=== PATIENT | male | born 1965 | race Caucasian/White ===

== ENCOUNTER → 2024-02-23 12:28 | Outpatient (REF) | payer MEDICARE, SELFPAY | LOC: RAD 12:28 | PROVIDERS: ATTENDING PHYSICIAN Family Medicine | DX: R06.09 Other forms of dyspnea (principal); Z87.891 Personal history of nicotine dependence; Z87.09 Personal history of other diseases of the respiratory system | CPT/HCPCS: 71046 ==

== ENCOUNTER → 2024-02-24 07:08 | Outpatient (REF) | payer MEDICARE, SELFPAY ==
[2024-02-24 07:52] LABS: % Basophils 0.7 % (0-2); % Eosinophils 1.1 % (0-6); % Immature Granulocytes 0.4 % (0-0.5); % Lymphocytes 35.1 % (20.5-51.1); % Monocytes 11.2 % (1.7-9.3); % Neutrophils 51.5 % (42.2-75.2); Absolute Eosinophils 0.1 10^3/uL (0-0.7); Absolute Lymphocytes 1.6 10^3/uL (1.2-3.4); Absolute Monocytes 0.5 10^3/uL (0.1-0.6); Absolute Neutrophils 2.4 10^3/uL (1.4-6.5); Hematocrit 46.3 % (39.0-52.0); Hemoglobin 16.3 g/dL (13.0-18.0); Mean Corp Hgb Conc. 35.2 g/dL (33.0-37.0); Mean Corpuscular Hgb 33.5 pg (27.0-31.0); Mean Corpuscular Volume 95.1 fL (80.0-94.0); Mean Platelet Volume 9.3 fL (7.4-10.4); Nucleated Red Blood Cells % 0 % (-); Platelet Count 230 10^3/uL (130-400); Red Blood Cell Count 4.87 10^6/uL (4.70-6.10); Red Cell Dist. Width 12.9 % (11.5-14.5); White Blood Cell Count 4.6 10^3/uL (4.8-10.8)
[2024-02-24 09:41] LABS: Erythrocyte Sed Rate 10 mm/hour (0-20)
[2024-02-24 09:49] LABS: ALT (SGPT) 73 U/L (0-50); AST (SGOT) 82 U/L (17-59); Albumin 4.3 g/dl (3.5-5.0); Alkaline Phosphatase 45 U/L (38-126); Blood Urea Nitrogen 15 mg/dl (9-20); Calcium 10.1 mg/dl (8.4-10.2); Carbon Dioxide 32 mmol/L (22-30); Chloride 104 mmol/L (98-107); Glucose 115 mg/dl (70-99); HDL Cholesterol 98 mg/dl; LDL Cholesterol, Calculated 47 mg/dl; Sodium 141 mmol/L (135-145); Total Bilirubin 0.6 mg/dl (0.2-1.3); Total Cholesterol 161 mg/dl (50-199); Triglyceride 81 mg/dl (10-149); Uric Acid 4.2 mg/dl (3.5-8.5); Very Low Density Lipoprotein 16 mg/dl (0-30); eGFR > 60.00
[2024-02-24 09:56] LABS: C-Reactive Protein < 5.00 mg/L (0.0-10.00)
[2024-02-24 10:12] LABS: Vitamin D, 25-OH*** 31.5 ng/mL (30-80)
== END ==
LOC: REG 07:08
PROVIDERS: ATTENDING PHYSICIAN Family Medicine
DX: R10.31 Right lower quadrant pain (principal); Z87.19 Personal history of other diseases of the digestive system; E78.2 Mixed hyperlipidemia; E55.9 Vitamin D deficiency, unspecified
CPT/HCPCS: 36415; 80053; 80061; 82306; 84550; 85025; 85652; 86140

== ENCOUNTER → 2024-03-03 11:28 | Outpatient (REF) | payer MEDICARE, SELFPAY | LOC: RAD 11:28 | PROVIDERS: ATTENDING PHYSICIAN Family Medicine | DX: R10.31 Right lower quadrant pain (principal); Z87.19 Personal history of other diseases of the digestive system | CPT/HCPCS: 74178; Q9967 ==

== ENCOUNTER 2024-03-14 18:09 | Inpatient (IN) | payer MEDICARE, SELFPAY ==
[2024-03-14 12:57] VITALS: BP 127/84
[2024-03-14 13:13] LABS: % Basophils 0.5 % (0-2); % Eosinophils 0.3 % (0-6); % Monocytes 8.2 % (1.7-9.3); Absolute Immature Granulocytes 0.1 10^3/uL (0-0.05); Absolute Lymphocytes 1.7 10^3/uL (1.2-3.4); Absolute Monocytes 0.7 10^3/uL (0.1-0.6); Absolute Neutrophils 5.5 10^3/uL (1.4-6.5); Hematocrit 46.2 % (39.0-52.0); Hemoglobin 16.6 g/dL (13.0-18.0); Mean Corp Hgb Conc. 35.9 g/dL (33.0-37.0); Mean Corpuscular Hgb 33.4 pg (27.0-31.0); Nucleated Red Blood Cells % 0 % (-); Platelet Count 374 10^3/uL (130-400); Red Blood Cell Count 4.97 10^6/uL (4.70-6.10); Red Cell Dist. Width 13.2 % (11.5-14.5)
[2024-03-14 13:28] LABS: ALT (SGPT) 51 U/L (0-50); AST (SGOT) 57 U/L (17-59); Albumin 4.3 g/dl (3.5-5.0); Alkaline Phosphatase 45 U/L (38-126); Blood Urea Nitrogen 25 mg/dl (9-20); Calcium 9.7 mg/dl (8.4-10.2); Carbon Dioxide 28 mmol/L (22-30); Chloride 104 mmol/L (98-107); Glucose 131 mg/dl (70-99); Potassium 3.9 mmol/L (3.5-5.1); Sodium 140 mmol/L (135-145); Total Bilirubin 0.8 mg/dl (0.2-1.3); Total Protein 7.2 g/dl (6.3-8.2); eGFR > 60.00
[2024-03-14 14:34] VITALS: BP 118/97; BMI 25.8
[2024-03-14 15:22] VITALS: BP 121/61
--- NOTE | 2024-03-14 15:22 | ED.GENMED ---
History of Present Illness
General
Chief Complaint: Abdominal Symptoms
Source: patient and family
Exam Limitations: other (Patient with expressive aphasia from 2 strokes)
Time Seen by Provider: 03/14/24 14:22
Nursing documentation reviewed up to this point in time: agreed with
Travel History
Have you had any contact with someone who has COVID-19?: No
Do you have any symptoms of coronavirus? Fever > 100 degrees, chills, cough, shortness of breath, sore throat, loss of taste or smell, muscle aches, or headache?: No
History of Present Illness
History of Present Illness:
Patient is a 59-year-old male with history of alcohol abuse A-fib hypertension hyperlipidemia expressive aphasia strokes sent to the ER for evaluation and for admission. Sister who is at bedside who is giving history for patient since he has
expressive aphasia reports patient has had abdominal pain and had an outpatient CAT scan showed an abnormality reports thickening of the sigmoid colon. He needs a colonoscopy however because of his alcohol use patient was sent to the ER for
admission to the for observation hydration and colonoscopy. Patient drinks 15-16 beers per day.
Patient with no nausea vomiting fevers. Sister reports that patient is on Eliquis and sounds counter stitcher, Dr. Aron Hogan this morning. He is in A-fib currently and had an echo done today. Sister reports the patient was supposed to be
increasing his metoprolol to 50 mg for the past 2 weeks however instead of creasing his metoprolol he has been incidentally increasing his statin instead.
Regarding patient's alcohol use patient has never had a withdrawal seizure. He did not drink today he last drank yesterday
Past History
Past History
ED Past Medical History: Arrthythmia, COPD, CVA, HTN, Hypercholesterolemia and Other
ED Past Surgical History: Cardiac
Social History
Tobacco: Former smoker
Alcohol: None
Drug: None
Living: with family
Review of Systems
Review of Systems
Allergies reviewed?: Yes
All Other Systems: ROS reviewed and negative except as documented in HPI and ROS
Constitutional: Reports no symptoms
Respiratory: Reports no symptoms
Cardiac: Reports no symptoms
ABD/GI: Reports other (Intermittent abdominal pain right-sided)
: Reports no symptoms
Musculoskeletal: Reports no symptoms
Skin: Reports no symptoms
Neurological: Reports no symptoms
Psychiatric: Reports no symptoms
Phy Exam
General Physical Exam
General Presentation: no apparent distress
General age: appears stated age
General Skin: warm and dry
General Mental: alert
General Hydration: appears well hydrated
Cardiovascular Exam
Cardiovascular Exam: irregularly irregular
Neurological Exam
Neurological Exam: alert and oriented x3
Musculoskeletal Exam
Musculoskeletal Exam: full ROM
Skin Exam
Skin Exam: normal color and warm/dry
Psychiatric Exam
Psychiatric Exam: normal mood/affect
Course
Orders/Labs/Results
Orders:
Orders
03/14/24 13:03
Alcohol Urgent
Complete Blood Count/With Diff Urgent
Comprehensive Metabolic Panel Urgent
Magnesium Urgent
Phosphorus Urgent
Comment: ADD ON
03/14/24 Dinner
Cholesterol Lowering
At Your Request: Full Participation
Does patient need a safe tray?: No
03/14/24 15:36
Electrocardiogram (*1) Stat
Reason for Study: Other
Other Reason for Exam: chest pain
EKG- Treatment ONCE
03/14/24 17:27
Admit/Transfer Patient As Directed
Co-Sign Provider:
Level of Care: Inpatient admission
Assign to:: Telemetry
Physician / Group: [place]
Diagnosis: Sigmoid mass
Reason for Telemetry: Arrhythmia
Date to Stop Telemetry: 03/17/24
Time to Stop Telemetry: 11:00
Reason for Hospitalization: See progress note
Expected length of stay greater than two midnights?: Yes
ELOS- Estimated Length of Stay in days: 3
I certify the patient meets the requirements for IP care: Yes
03/14/24 17:34
Code Status As Directed
Resuscitation Status: Full Code
03/14/24 17:51
Phenobarbital Sodium [Phenobarbital] 260 mg 0.9% Sodium Chloride 100 ml [Nss] 100 ml IV NOW
03/14/24 19:46
0.9% Sodium Chloride [Nss (Preservative Free)] See Protocol IV PRN PRN
Acetaminophen [Tylenol] 650 mg PO Q4HPRN PRN
FOLic ACID [Folvite] 1 mg 0.9% Sodium Chloride 50 ml [Nss] 50 ml IV DAILYPRN
Lorazepam [Ativan] 1 mg IV Q1HPRN PRN
Lorazepam [Ativan] 1 mg PO Q2HPRN PRN
Lorazepam [Ativan] 2 mg IV Q1HPRN PRN
03/14/24 19:46
Add On- LAB Routine
Tests Added?: phosphorus,magnesium
Case Management Consult Once
Case Management Consult: Other
Comment: Substance abuse counseling
DIETARY CONSULT Routine
Reason for Consult: Nutrition support, possible refeeding guidelines
GASTROINTESTINAL CONSULT Routine
Consulting Provider: Danae Aguilera
Was physician already notified: Yes
Urine Drug Abuse Screen Routine
Date Specimen was Collected: 03/15/24
Time Specimen was Collected: 03:37
Activity As Directed
Activity Level: As Tolerated
I&O [Intake/ Output] As Directed
Frequency: q12h
MSAS SCORE As Directed
MSAS Score 0-4: Repeat MSAS every 2 hours until 0-4 for three consecutive assessments, then every 4 hours x 48
hours.
MSAS Score 5-7: For MILD withdrawl symptoms. Repeat MSAS and RASS every 2 hours
MSAS Score 8-11: For MODERATE withdrawal symptoms. Repeat MSAS and RASS every 1 hour. Consider ICU or IMU
level of care.
MSAS Score > 11: For SEVERE withdrawal symptoms. Repeat MSAS and RASS every 1 hour. Notify provider, consider
ICU level of care.
MSAS Additional Instructions: If no improvement or no decrease in score from severe to moderate within 12
hours, consult psychiatry
MSAS Notify Provider: Notify provider if patient requires more than 10 mg of Lorazepam in eight hour period.
Sequential Compression Device [Pneumatic Compression Sleeves] As Directed
Type: Knee high
Pt Eval And Treat Routine
Activity Level: As Tolerated
DX Deep Vein Thrombosis Video Routine
03/14/24 20:00
Thiamine Injection 200 mg IV Q12
03/14/24 22:00
Atorvastatin [Lipitor] 40 mg PO HS
Gabapentin [Neurontin] 900 mg PO HS
Trazodone [Desyrel] 50 mg PO HS
03/15/24 08:00
Allopurinol [Zyloprim] 300 mg PO DAILY
FOLic ACID [Folvite] 1 mg PO DAILY
Fenofibrate 145 [Tricor] 145 mg PO DAILY
Hydrochlorothiazide [Oretic] 25 mg PO DAILY
Lisinopril [Zestril] 40 mg PO DAILY
Metoprolol Xl [Toprol Xl] 50 mg PO DAILY
Phenobarbital Sodium [Phenobarbital] 97.5 mg IV TID
03/17/24 08:00
Phenobarbital [Luminal] 64.8 mg PO TID
03/17/24 11:00
DC Protocol for Telemetry ONCE
03/17/24 20:00
Thiamine HCl [Vitamin B1] 100 mg PO BID
03/19/24 08:00
Phenobarbital [Luminal] 32.4 mg PO TID
Abnormal Lab Results
03/14/24
13:03
MCH 33.4 H pg
(27.0-31.0)
Abs Immat Gran (auto) 0.1 H 10^3/uL
(0-0.05)
Absolute Monos (auto) 0.7 H 10^3/uL
(0.1-0.6)
Immature Gran % 1.0 H %
(0-0.5)
BUN 25 H mg/dl
(9-20)
Glucose 131 H mg/dl
(70-99)
ALT 51 H U/L
(0-50)
03/14/24 13:03
03/14/24 13:03
Vital Signs
Initial and Last Documented VS:
Initial Vital Signs
Temp Pulse Resp BP Pulse Ox
98.8 F 78 16 127/84 98
03/14/24 12:57 03/14/24 12:57 03/14/24 12:57 03/14/24 12:57 03/14/24 12:57
Last Documented Vital Signs
Temp Pulse Resp BP Pulse Ox
98.1 F 88 18 97/60 98
03/16/24 15:31 03/16/24 15:31 03/16/24 15:31 03/16/24 15:31 03/16/24 15:31
MDM/Problems Addressed
MDM/Problems Addressed:
59-year-old male sent by physician GI physician for evaluation. Patient is documented has been having abdominal pain and was found to have an abnormal CAT scan with abnormality in the sigmoid colon. He was recommended to have a colonoscopy however
he is a heavy alcohol drinker and therefore was unable to do the colonoscopy as an outpatient. He has never had any withdrawal seizures but he drinks approximate 15�16 beers per day. He did not drink today. He is no acute distress mildly tender
in the right lower quadrant right side of the abdomen no nausea vomiting. He does have a history of A-fib and is in A-fib presently he is on Eliquis. His counter stitcher whom he just saw this morning increases beta-mihaela. He is in no acute
distress patient manage the hospitalist
*Pulse Oximetry
Patient hypoxic: no
*EKG
Interpreted by ED Provider?: Yes
Heart Rate: 108
Rate: tachycardiac
Rhythm: a-fib
Ischemia: non-specific ST changes
*Critical Care Note
Total Time (30-74mins, 75-104mins- exclusive of procedures): Not Applicable
Data Reviewed
Review of Other/Old Records Reveals: Other (CAT scan reviewed from March 09 which shows under distention versus mild narrowing and wall thickening involving 2 segments of the sigmoid colon)
ED Attending Note
-
Portions of this chart may have been created with voice recognition software.� Occasional wrong word or��sound alike� substitutions may have occurred due to the inherent limitations of voice recognition software.
Discharge Plan
Departure
Patient Disposition: Admit
Date of Disposition: 03/14/24
Time of Disposition: 15:41
Admit to: Med/Surg
Admit to doctor: hospitalist
Presentation/result/management discussed w/ accepting MD/DO: Hospitalist
Patient with high blood pressure during this ER visit?: Yes
Condition: Fair
Covid-19: Not Applicable
Discharge Problem:
Abdominal pain
Interventions
Interventions:
*Risk Screen - Suicide Last Done: 03/14/24 14:34
*General Assessment Last Done: 03/14/24 14:34
*Neglect/Abuse Screening Last Done: 03/14/24 14:34
*ED COVID-19 Vaccine History Last Done: 03/14/24 12:57
*Nursing Disposition Last Done: 03/14/24 19:43
QU-Vaqjcb-Nkblkfpuec Assessment Last Done: 03/14/24 14:34
Discharge Date and Time
Discharge Date/Time: 03/14/24 19:43
--- NOTE | 2024-03-14 17:38 | HPS.HSE ---
Family Physician
-
Family Physician: Vanessa Pelayo
Chief Complaint
-
abdominal pain with sigmoid mass, getting admitted for pre colonoscopy stabilization.
History of Present Illness
Patient recently started to have abdominal pain for which a CT of the abdomen pelvis was done which raises concern for sigmoid mass. He needs colonoscopy for further evaluation.
Patient was referred to hospital by PCP and GI for precolonoscopy stabilization with the greatest risk being high risk for alcohol withdrawals.
Patient lives in [facility] independently. Sister who lives locally helps him out with all the medical issues including doctors visit, tests.
she says the PCP and GI team were concerned about the alcohol withdrawal and so asking for elective admission for procedure. So she went up to the [facility] brought him down to the hospital for admission.
According to the sister patient drinks 15-16 beer every day for many days and months. She states when he takes them out for doctors visit at the end of the day he is shaky and sweaty. Last week when he was out for CAT scan just for 3 hours he was
shaky and sweaty. He never had alcohol withdrawal seizures. No known alcoholic delirium tremens as he was now off of alcohol. In 2011 he went to alcohol rehab program for a year and after that he went back to alcoholism and ever since has been
drinking alcohol every day.
Patient also has expressive aphasia ever since stroke in 2013. He is known to have A-fib. 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
Ever since he has been on Eliquis again. He has had interruptions of Eliquis for latest procedures on 2 occasions without any complications.
Last dose of Eliquis was this a.m. at 6 AM.
Medical History
Past Medical History
Past Medical History: Reports Arrhythmia (afib), CVA, HTN, Hypercholesterolemia and Other (gout)
Past Surgical History: Reports Cardiac (ablation)
Social History
Tobacco: Non-smoker
Alcohol: Chronic Alcoholic
Drug: None
Living: Alone
Family History
Family History: Not pertinent
Allergies / Home Medications
Allergies reflects when Allergies were last updated in [employer].
Home Medications with original date entered in [employer]
Allergy/Medication List:
Allergies
Allergy/AdvReac Type Severity Reaction Status Date / Time
dabigatran etexilate Allergy Intermediate Unknown Verified 03/14/24 12:59
[From Pradaxa]
rivaroxaban [From Xarelto] Allergy Intermediate Unknown Verified 03/14/24 12:59
azithromycin [From Zithromax] Allergy Unknown Unknown Verified 03/14/24 12:59
Penicillins Allergy Unknown Unknown Verified 03/14/24 12:59
Home Medications
allopurinol 300 mg tablet 300 mg PO DAILY 03/14/24
apixaban 5 mg tablet (Eliquis) 5 mg PO BID 03/14/24
atorvastatin 40 mg tablet 40 mg PO HS 03/14/24
fenofibrate nanocrystallized 145 mg tablet 145 mg PO DAILY 03/14/24
gabapentin 300 mg capsule 900 mg PO HS 03/14/24
hydrochlorothiazide 25 mg tablet 25 mg PO DAILY 03/14/24
lisinopril 40 mg tablet 40 mg PO DAILY 03/14/24
metoprolol succinate 50 mg tablet,extended release 24 hr 50 mg PO DAILY 03/14/24
trazodone 50 mg tablet 50 mg PO HS 03/14/24
Review of Systems
-
A 12 point ROS was completed and negative except as noted: Yes
Physical Exam
Vital Signs
Vital Signs
Temp Pulse Resp BP Pulse Ox
98.8 F 95 16 121/61 97
03/14/24 12:57 03/14/24 17:15 03/14/24 14:34 03/14/24 15:22 03/14/24 15:23
Physical Exam
General: No Apparent Distress
HEENT: Moist mucous membranes
Respiratory: Clear
Cardiac: S1/S2 and Regular Rhythm; No Tachycardia
GI: Soft, Non Tender, Non Distended and Normal Bowel Sounds
Neuro: AO x 3 and Other (expressive aphasia not total); No No Motor Deficits (RUE weak and contracture noted. RLE 4+/5 )
Psych: Calm
Laboratory Results
-
03/14/24 13:03
03/14/24 13:03
Laboratory Results
Total Bilirubin 0.8 mg/dl (0.2-1.3) 03/14/24 13:
AST 57 U/L (17-59) 03/14/24 13:
ALT 51 U/L (0-50) H 03/14/24 13:
Alkaline Phosphatase 45 U/L (38-126) 03/14/24 13:
Data Reviewed
-
Lab Data: Labs Reviewed by me
Impression/Plan
-
Abdominal pain with discovery of sigmoid colon mass-colonoscopy after stabilization. Consult GI.
Alcohol use disorder-patient with chronic alcoholism ,drinks 15-16 beers per day with signs symptoms symptoms of withdrawal within 3 to 4 hours of no alcohol based on the history. In view of her high risk for DTs we will start him on phenobarb
taper protocol and also alcohol withdrawal syndrome protocol. No prior history of seizures.
Permanent atrial fibrillation-heart rate in low 100s. Asymptomatic. Continue with his beta-mihaela. Follow on telemetry. Hold Eliquis. If his plan for colonoscopy is more than 48 hours will start on IV heparin and aim to start his Eliquis on
the same day as his colonoscopy depending on the scenario. He is a high risk for embolic phenomenon.
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
Hypertension-continue with his lisinopril hydrochlorothiazide
Full code
Discussed with Sister China who is the POA.
[2024-03-14 18:21] VITALS: BP 142/96
[2024-03-14] MEDS: PHENOBARBITAL 104 MG IV (18:23)
[2024-03-14 20:19] LABS: Magnesium 1.6 mg/dl (1.6-2.3)
[2024-03-14 20:22] LABS: Alcohol None Detected
[2024-03-14 20:48] VITALS: BMI 25.8
[2024-03-14] MEDS: THIAMINE INJECTION 200 MG IV (20:49)
[2024-03-14 20:51] VITALS: BP 154/104
[2024-03-14] MEDS: DESYREL 50 MG PO (22:30)
[2024-03-14] MEDS: LIPITOR 40 MG PO (22:30)
[2024-03-14] MEDS: NEURONTIN 900 MG PO (22:30)
[2024-03-14 23:30] VITALS: BP 155/100
--- NOTE | 2024-03-15 00:36 | PTCARENOTE ---
Addendum entered by Una Grewal RN 03/15/24 00:39:
call miranda and plan of care.
Original Note:
Received pt from ER at 1999. Pt AAOx3, VSS. Pt with slight expressive aphasia as well as R sided weakness. MSAS 1 for HR. Pt reports last drink yesterday. Pt oriented to room, call bethai
[2024-03-15 03:49] VITALS: BP 149/81
[2024-03-15 05:05] LABS: Amphetamines Negative (Negative); Barbiturates Positive (Negative); Benzodiazepines Negative (Negative); Buprenorphine Negative (Negative); Cocaine Negative (Negative); Marijuana Negative (Negative); Methadone Negative (Negative); Methamphetamines Negative (Negative); Opiates Negative (Negative); Phencyclidine Negative (Negative); Tricyclic Antidepressants Negative (Negative)
[2024-03-15 07:31] VITALS: BP 144/95
[2024-03-15] MEDS: PHENOBARBITAL 97.5 MG IV ×3 (08:59→21:04)
[2024-03-15] MEDS: THIAMINE INJECTION 200 MG IV ×2 (09:01→21:09)
[2024-03-15] MEDS: ZYLOPRIM 300 MG PO (09:02)
[2024-03-15] MEDS: TOPROL XL 50 MG PO (09:02)
[2024-03-15] MEDS: FOLVITE 1 MG PO (09:02)
[2024-03-15] MEDS: TRICOR 145 MG PO (09:02)
[2024-03-15] MEDS: ZESTRIL 40 MG PO (09:02)
[2024-03-15] MEDS: ORETIC 25 MG PO (09:03)
--- NOTE | 2024-03-15 12:57 | W.PN.HOSP.TC ---
Today's Communication/Plan
-
Await GI input regarding colonoscopy.
Assessment / Plan
Assessment / Plan
Abdominal pain with discovery of sigmoid colon mass-colonoscopy after stabilization. Consulted GI. Tolerating diet.
Alcohol use disorder-patient with chronic alcoholism ,drinks 15-16 beers per day with signs symptoms symptoms of withdrawal within 3 to 4 hours of no alcohol based on the history. In view of her high risk for DTs started him on phenobarb taper
protocol and also alcohol withdrawal syndrome protocol. No prior history of seizures. No evidence of alcohol withdrawal syndrome so far.
Permanent atrial fibrillation-heart rate in low 100s. Asymptomatic. Continue with his beta-mihaela. Follow on telemetry. Hold Eliquis. If his plan for colonoscopy is more than 48 hours will start on IV heparin and aim to start his Eliquis on
the same day as his colonoscopy depending on the scenario. He is a high risk for embolic phenomenon.
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
Hypertension-continue with his lisinopril hydrochlorothiazide
Full code
Discussed with Sister China who is the POA 03/14.
Anticipated Discharge: > 48 hours
Subjective/Interval History
-
Date of Service: March 15, 2024
Patient feels okay. Does not feel shaky. Voicing no specific complaints. Eating okay.
Objective Data
-
Vital Signs:
Vital Signs
Temp Pulse Resp BP Pulse Ox
97.8 F 79 18 144/95 99
03/15/24 07:31 03/15/24 07:31 03/15/24 07:31 03/15/24 07:31 03/15/24 07:31
I&O
03/14/24 03/15/24 03/16/24
06:59 06:59 06:59
Output Total
Balance -1 / -1
Review of Systems
-
Unable to obtain full review of systems at this time due to: Other (due to some expressive aphasia)
Physical Exam
-
General: No Apparent Distress
HEENT: Moist Mucous Membranes
Respiratory: Clear to Auscultation
Cardiac: S1/S2 and Irregular Rhythm; Negative Tachycardic
GI: Soft, Nontender, Nondistended and Normal Bowel Sounds
Neuro: Awake, Alert and Oriented; Negative No Motor Deficits (as yesterday) or Tremors
Psych: Calm; Negative Agitated
--- NOTE | 2024-03-15 13:15 | CON.GI ---
Consultation
-
Date/Time Consultation Requested: 03/14/24 at 6pm
Date/Time Consultation Performed: 03/15/24 at 9am
Requesting Provider: [place]
Performing Provider: Willy
Reason for Consultation: abnormal imaging
Medical History
Chief Complaint / HPI
Chief Complaint: abnormal ct scan
History of Present Illness:
Pt is a 59 y/o man with a hx of cva, afib, htn on eliquis who also has alcohol abuse with 16 budweiser a day had abdominal pain and as an outpatient had a ct scan that showed a possible sigmoid mass. Pt currently doesn't have abd pain. He has no
nausea an vomiting. He has been at rehab in the past. He has been shaky but no overt withdrawal hx. He was admitted to ensure he doesn't have withdrawal and was put on a phenobarbital drip. He did have eliquis yesterday.
Past Medical History
Past Medical History: Arrhythmias and Other (embolic stroke, htn, hypercholesterolemia)
Past Surgical History: Other (cardiac ablation)
Social History
Tobacco: Non-Smoker
Alcohol: Daily
Living: Alone
Family History
Family History: Reviewed & Not Pertinent
Allergies / Home Medications
Allergy/AdvReac Type Severity Reaction Status Date / Time
dabigatran etexilate Allergy Intermediate Unknown Verified 03/14/24 12:59
[From Pradaxa]
rivaroxaban [From Xarelto] Allergy Intermediate Unknown Verified 03/14/24 12:59
azithromycin [From Zithromax] Allergy Unknown Unknown Verified 03/14/24 12:59
Penicillins Allergy Unknown Unknown Verified 03/14/24 12:59
�Medication �Instructions �Recorded
allopurinol 300 mg tablet 300 mg PO DAILY Gout 03/14/24
apixaban 5 mg tablet (Eliquis) 5 mg PO BID Blood Clot 03/14/24
Prevention/Tx
atorvastatin 40 mg tablet 40 mg PO HS High Cholesterol 03/14/24
fenofibrate nanocrystallized 145 145 mg PO DAILY HIGH TRIGLYCERIDES 03/14/24
mg tablet
gabapentin 300 mg capsule 900 mg PO HS Pain 03/14/24
hydrochlorothiazide 25 mg tablet 25 mg PO DAILY Fluid 03/14/24
Retention/Swelling
lisinopril 40 mg tablet 40 mg PO DAILY Blood Pressure 03/14/24
metoprolol succinate 50 mg 50 mg PO DAILY Blood Pressure 03/14/24
tablet,extended release 24 hr
trazodone 50 mg tablet 50 mg PO HS Mental Health/Anxiety 03/14/24
Review of Systems
-
All other systems: A 12 pt ROS was Negative except as stated above in HPI
Vital Signs
Temp Pulse Resp BP Pulse Ox
97.8 F 79 18 144/95 99
03/15/24 07:31 03/15/24 07:31 03/15/24 07:31 03/15/24 07:31 03/15/24 07:31
Physical Exam
Exam
General: No Apparent Distress
HEENT: Anicteric
Respiratory: Clear
Cardiac: S1/S2
GI: Soft and Non Tender
Neuro: Awake and Other (right arm weakness)
Psych: Calm
Results
WBC 8.0 10^3/uL (4.8-10.8) 03/14/24 13:03
Hgb 16.6 g/dL (13.0-18.0) 03/14/24 13:03
Hct 46.2 % (39.0-52.0) 03/14/24 13:03
MCV 93.0 fL (80.0-94.0) 03/14/24 13:03
Plt Count 374 10^3/uL (130-400) 03/14/24 13:03
Absolute Neuts (auto) 5.5 10^3/uL (1.4-6.5) 03/14/24 13:03
Sodium 140 mmol/L (135-145) 03/14/24 13:03
Potassium 3.9 mmol/L (3.5-5.1) 03/14/24 13:
Chloride 104 mmol/L (98-107) 03/14/24 13:
Carbon Dioxide 28 mmol/L (22-30) 03/14/24 13:
BUN 25 mg/dl (9-20) H 03/14/24:
Creatinine 0.7 mg/dL (0.7-1.3) 03/14/24:
Calcium 9.7 mg/dl (8.4-10.2) 03/14/24:
Total Bilirubin 0.8 mg/dl (0.2-1.3) 03/14/24:
AST 57 U/L (17-59) 03/14/24:
ALT 51 U/L (0-50) H 03/14/24:
Alkaline Phosphatase 45 U/L (38-126) 03/14/24:
Assessment / Plan
-
Pt is a 59 y/o with a hx of embolic stroke, cva, alcohol abuse, abnormal CT scan with possible sigmoid mass (viewed report and did view films) who is at risk for alcohol withdrawal.
1. on phenobarbitol protocol for potential alcohol withdrawal.
2. holding eliquis and did d/w Dr. Boyle that if procedure not done in 48 hours then will put him on heparin
3 will keep on clears and potential colonoscopy on 03/17 after eliquis washout and if no obvious withdrawal to evaluate abnormal CT scan,.
4. needs alcohol abstinence.
-
-
Thank you for consultation and allowing me to participate in the patient's care. Please call the vocational ed instructor GI physician during the after hours with any questions or concerns.
--- NOTE | 2024-03-15 14:05 | CM ---
risk and insurance manager reviewed patient's chart and met with patient and patient lives in a 2 story home, in the [facility], patient is independent with adl's and ambulation. risk and insurance manager received a consult for substance and reviewed options for AA meetings,
outpatient and inpatient treatment options and patient declined, patient's states his friends and his sister assist with grocery shopping and appointments. Patient has a prescription plan and patient uses [facility].
Plan; Home no needs when stable.
[2024-03-15 14:50] VITALS: BP 112/70
[2024-03-15] MEDS: GAVILAX 238 GM PO (16:24)
[2024-03-15 19:22] VITALS: BP 122/77
[2024-03-15] MEDS: NEURONTIN 900 MG PO (21:08)
[2024-03-15] MEDS: LIPITOR 40 MG PO (21:08)
[2024-03-15] MEDS: DESYREL PO (21:09)
[2024-03-15] MEDS: DESYREL 50 MG PO (23:01)
[2024-03-15 23:19] VITALS: BP 121/80
[2024-03-16] VITALS (7 sets, daily range): BP systolic 81–130; BP diastolic 49–87; BMI 25.4
--- NOTE | 2024-03-16 03:22 | DOWNTIME ---
There was a [employer] Client Vice President For Instruction Downtime on 03/15/2024 from 0100 to 03/16/2024 at 0300. Downtime documentation of patient's care, including medication administrations, has been reconciled in the electronic record per guidelines. Refer to the
patient's paper chart under the miscellaneous tab to see printed paper medication records and downtime forms.
[2024-03-16] MEDS: ZYLOPRIM 300 MG PO (09:05)
[2024-03-16] MEDS: ZESTRIL 40 MG PO (09:05)
[2024-03-16] MEDS: ORETIC 25 MG PO (09:05)
[2024-03-16] MEDS: TRICOR 145 MG PO (09:05)
[2024-03-16] MEDS: TOPROL XL 50 MG PO (09:06)
[2024-03-16] MEDS: PHENOBARBITAL 97.5 MG IV ×3 (09:06→20:44)
[2024-03-16] MEDS: THIAMINE INJECTION 200 MG IV ×2 (09:06→20:43)
[2024-03-16] MEDS: FOLVITE 1 MG PO (09:07)
--- NOTE | 2024-03-16 11:31 | W.PN.HOSP.TC ---
Addendum entered and electronically signed by Yonas Boyle MD 03/16/24 11:38:
Correction - start iv heparin starting today .Last dose of Eliquis 03/14 am so now it is 48hr since last dose.
Original Note:
Today's Communication/Plan
-
Continue with alcohol withdrawal syndrome protocol
Start on IV heparin starting tomorrow morning at 6am. Hold it prior to [place] per GI.
Assessment / Plan
Assessment / Plan
Abdominal pain with discovery of sigmoid colon mass-colonoscopy after stabilization. Tolerating diet. GI colonoscopy plans noted for 03/17.
Alcohol use disorder-patient with chronic alcoholism ,drinks 15-16 beers per day with signs symptoms symptoms of withdrawal within 3 to 4 hours of no alcohol based on the history. In view of her high risk for DTs started him on phenobarb taper
protocol and also alcohol withdrawal syndrome protocol - he is tolerating it well. No prior history of seizures. No evidence of alcohol withdrawal syndrome so far.
Permanent atrial fibrillation-heart rate controlled. Asymptomatic. Continue with his beta-mihaela. Hold Eliquis -last dose 13th am dose. If his plan for colonoscopy is more than 48 hours which seems the case we will start on IV heparin
starting 03/17 am ; aim to start his Eliquis on the same day as his colonoscopy depending on the scenario. He is a high risk for embolic phenomenon.
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
Hypertension-continue with his lisinopril hydrochlorothiazide
Full code
Discussed with Sister China at bedside.
Anticipated Discharge: 24 - 48 hours
Subjective/Interval History
-
Date of Service: March 16, 2024
No overnight events. No witnessed alcohol withdrawal syndrome by anyone last night.
Sister at bedside sees him very stable without any shakes or sweats.
Patient tolerating diet.
Objective Data
-
Vital Signs:
Vital Signs
Temp Pulse Resp BP Pulse Ox
97.6 F 74 18 97/58 98
03/16/24 11:22 03/16/24 11:22 03/16/24 11:22 03/16/24 11:22 03/16/24 11:22
I&O
03/15/24 03/16/24 03/17/24
06:59 06:59 06:59
Intake Total 900 / 900
Output Total
Balance - / - 900 / 900
Review of Systems
-
Unable to obtain full review of systems at this time due to: Other (Due to his expressive aphasia)
Respiratory: Denies Trouble Breathing
Cardiac: Denies Chest Pain
Abdomen/GI: Denies Abdominal Pain, Nausea or Vomiting
Neuro: Denies Dizzy
Physical Exam
-
General: No Apparent Distress and Comfortable
HEENT: Moist Mucous Membranes
Respiratory: Clear to Auscultation
Cardiac: Regular Rhythm and S1/S2
GI: Negative Soft, Nontender, Nondistended or Normal Bowel Sounds
Neuro: Awake, Alert and Oriented; Negative No Motor Deficits (as before )
Psych: Calm; Negative Confused
[2024-03-16 12:32] LABS: Hematocrit 44.3 % (39.0-52.0); Hemoglobin 16.3 g/dL (13.0-18.0); Mean Corp Hgb Conc. 36.8 g/dL (33.0-37.0); Mean Corpuscular Hgb 34.5 pg (27.0-31.0); Mean Corpuscular Volume 93.7 fL (80.0-94.0); Mean Platelet Volume 8.9 fL (7.4-10.4); Platelet Count 331 10^3/uL (130-400); Red Blood Cell Count 4.73 10^6/uL (4.70-6.10); Red Cell Dist. Width 13.2 % (11.5-14.5); White Blood Cell Count 9.6 10^3/uL (4.8-10.8)
[2024-03-16 12:41] LABS: APTT 23.5 Sec (23.4-35.0)
--- NOTE | 2024-03-16 12:52 | W.PN.GI.CBS2 ---
Today's Communication / Plan
-
colonoscopy tomorrow
heparin ggt to stop in early am
Assessment / Plan
-
Pt is a 59 y/o with a hx of embolic stroke, cva, alcohol abuse, abnormal CT scan with possible sigmoid mass (viewed report and did view films) who is at risk for alcohol withdrawal.
1. on phenobarbitol protocol for potential alcohol withdrawal but totally stable clinically
2. holding eliquis and now on heparin. Asked Dr Boyle to hold heparin in early am for late morning procedure
3 colonoscopy on 03/17 scheduled. Pt knows about prep.
4. needs alcohol abstinence.
Subjective
Subjective
Date of Service: March 16, 2024
Pt with no withdrawal, no abdominal pain.
Objective
Data Reviewed
Laboratory Data:
Laboratory Results
03/16/24 12:10
03/14/24 13:03
Laboratory Results
APTT 23.5 Sec (23.4-35.0) 03/16/24 12:10
Phosphorus 3.0 mg/dl (2.5-4.5) 03/14/24 13:03
Magnesium 1.6 mg/dl (1.6-2.3) 03/14/24 13:03
Total Bilirubin 0.8 mg/dl (0.2-1.3) 03/14/24 13:03
AST 57 U/L (17-59) 03/14/24 13:03
ALT 51 U/L (0-50) H 03/14/24 13:03
Alkaline Phosphatase 45 U/L (38-126) 03/14/24 13:03
Vital Signs and I&O:
Vital Signs
Temp Pulse Resp BP Pulse Ox
97.6 F 74 18 97/58 98
03/16/24 11:22 03/16/24 11:22 03/16/24 11:22 03/16/24 11:22 03/16/24 11:22
I&O
03/15/24 03/16/24 03/17/24
06:59 06:59 06:59
Intake Total / 900
Output Total
Balance - 900 / 900
Physical Exam
Physical Exam
HEENT: Anicteric
GI: Soft, Non Distended and Non Tender
Neuro: Non Focal
[2024-03-16] MEDS: HEPARIN 25000 UNITS/250 ML IV (13:48)
--- NOTE | 2024-03-16 14:58 | CM ---
corporate tax manager continues to follow with patient and physician and sister reaching out for resources for Alcohol treatment for patient again, referral sent to [facility], nurse case management spoke with Claudio and Kp will be up to see patient at 4pm today.
Plan; Home when stable.
[2024-03-16] MEDS: NULYTELY SOLUTION 4 LITERS PO (16:40)
--- NOTE | 2024-03-16 18:44 | PTCARENOTE ---
1840 Pt completed drinking Colyte bowel prep as ordered per GI DR. When pt had Bowel movement in toilet, noted results were clear yellow, continue to monitor pt. Report given to shift commander nurse.
[2024-03-16 20:41] LABS: APTT 34.5 Sec (23.4-35.0)
[2024-03-16] MEDS: NEURONTIN 900 MG PO (20:44)
[2024-03-16] MEDS: LIPITOR 40 MG PO (20:44)
[2024-03-16] MEDS: DESYREL 50 MG PO (22:48)
--- NOTE | 2024-03-16 23:42 | PTCARENOTE ---
Manual Bp was 86/54. Nurse practitioner notified, order placed for bolus. Patient denies symptoms.
[2024-03-16] MEDS: NSS 250 IV (23:48)
[2024-03-17 00:27] VITALS: BP 95/64
[2024-03-17 03:00] VITALS: BP 126/82
[2024-03-17 03:45] LABS: Hematocrit 45.8 % (39.0-52.0); Hemoglobin 16.3 g/dL (13.0-18.0); Mean Corp Hgb Conc. 35.6 g/dL (33.0-37.0); Mean Corpuscular Volume 95.4 fL (80.0-94.0); Mean Platelet Volume 9.2 fL (7.4-10.4); Platelet Count 276 10^3/uL (130-400); Red Cell Dist. Width 13.2 % (11.5-14.5); White Blood Cell Count 8.8 10^3/uL (4.8-10.8)
[2024-03-17 04:01] LABS: APTT 50.6 Sec (23.4-35.0)
[2024-03-17 04:16] LABS: Blood Urea Nitrogen 11 mg/dl (9-20); Calcium 9.2 mg/dl (8.4-10.2); Carbon Dioxide 28 mmol/L (22-30); Chloride 102 mmol/L (98-107); Estimated Creatinine Clearance > 125 ml/min; Glucose 88 mg/dl (70-99); Sodium 135 mmol/L (135-145); eGFR > 60.00
[2024-03-17 07:35] VITALS: BP 110/77
[2024-03-17] MEDS: TOPROL XL 50 MG PO (07:59)
[2024-03-17] MEDS: ZYLOPRIM 300 MG PO (07:59)
[2024-03-17] MEDS: TRICOR 145 MG PO (07:59)
[2024-03-17] MEDS: ORETIC 25 MG PO (08:00)
[2024-03-17] MEDS: LUMINAL 64.7999999999999972 MG PO (08:00)
[2024-03-17] MEDS: ZESTRIL 40 MG PO (08:00)
[2024-03-17] MEDS: FOLVITE 1 MG PO (08:00)
[2024-03-17] MEDS: THIAMINE INJECTION 200 MG IV (08:01)
--- NOTE | 2024-03-17 10:00 | CM ---
area plant manager sent a referral to [facility] and they met with patient at 6pm yesterday to offer treatment, inpatient outpatient meetings, however patient declined all services, manager case left outpatient services with patient in the [place] where
patient lives.
Plan; Home when stable.
--- NOTE | 2024-03-17 10:27 | W.PN.HOSP.TC ---
Addendum entered and electronically signed by Yonas Boyle MD 03/17/24 14:36:
Patient had a visit from [facility] , was offered a rehab but he has declined. Discussed with China who is sister this morning again now- patient does not seems to be interested in alcohol rehab program. Explained to her that he canT go home on
phenobarb taper and drink. If he changes his mind she has information to get in touch with [facility].
Original Note:
Today's Communication/Plan
-
Colonoscopy today.
Restart Eliquis when okay from GI standpoint
DC planning
Assessment / Plan
Assessment / Plan
Abdominal pain with discovery of sigmoid colon mass-colonoscopy after stabilization. Tolerating diet. GI colonoscopy plans For today.
Alcohol use disorder-patient with chronic alcoholism ,drinks 15-16 beers per day with signs symptoms symptoms of withdrawal within 3 to 4 hours of no alcohol based on the history. In view of her high risk for DTs started him on phenobarb taper
protocol and also alcohol withdrawal syndrome protocol - he is tolerating it well. No prior history of seizures. No evidence of alcohol withdrawal syndrome so far.
encourage patient to go on continued phenobarb taper and get to a rehab for alcohol as an outpatient. He is not sure whether he wants to do rehab. Advised him that he cant go home on phenobarb taper if is not committed about abstinence ; drink
alcohol while on phenobarb is risky proposition. Sister presented bedside during this conversation.
Permanent atrial fibrillation-heart rate controlled. Asymptomatic. Continue with his beta-mihaela. Hold Eliquis -last dose 13th am dose. Was initiated on IV heparin yesterday and discontinued this morning for colonoscopy; aim to start his
Eliquis on the same day as his colonoscopy depending on the scenario. He is a high risk for embolic phenomenon.
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
Hypertension-continue with his lisinopril hydrochlorothiazide
Full code
Discussed with Sister China at bedside.
Anticipated Discharge: Today
Subjective/Interval History
-
Date of Service: March 17, 2024
await colonoscopy.
Objective Data
-
Labs:
Laboratory Results
03/17/24 03/17/24
03:24 10:10
WBC 8.8
Hgb 16.3
Hct 45.8
Plt Count 276
APTT 50.6 H Cancelled
Sodium 135
Potassium 4.0
Chloride 102
Carbon Dioxide 28
BUN 11
Creatinine 0.6 L
Glucose 88
Calcium 9.2
Vital Signs:
Vital Signs
Temp Pulse Resp BP Pulse Ox
97.5 F 85 18 110/77 99
03/17/24 07:35 03/17/24 07:35 03/17/24 07:35 03/17/24 08:00 03/17/24 07:35
I&O
03/16/24 03/17/24 03/18/24
06:59 06:59 06:59
Intake Total 900 / 900 2188 / 2188
Balance 900 / 900 2188 / 2188
Review of Systems
-
Constitutional: Denies Fever
Respiratory: Denies Trouble Breathing
Cardiac: Denies Chest Pain
Abdomen/GI: Denies Abdominal Pain, Nausea or Vomiting
Neuro: Denies Dizzy
Physical Exam
-
General: No Apparent Distress
HEENT: Moist Mucous Membranes
Respiratory: Clear to Auscultation
Cardiac: S1/S2 and Irregular Rhythm; Negative Tachycardic
Neuro: AO x 3
Psych: Calm
Data Reviewed
-
Labs: Labs Reviewed by me
--- NOTE | 2024-03-17 11:39 | W.PN.UPDATE ---
Update Note
Progress Note Update
colonoscopy: fair prep, 6 polyps all 5mm or less, random biopsies taken.
will f/u path and f/u outpatient
ok to restart anticoagulation
will sign off call with questions.
[2024-03-17 11:45] VITALS: BP 106/75; BP_SYST 15
[2024-03-17 12:00] VITALS: BP 126/91; BP_SYST 18
--- NOTE | 2024-03-17 14:31 | W.DS.TRANS ---
DC Summary - Legal Service Specialist
-
Discharge Instructions:
Sleep Apnea Risk Low
Discharge Diagnosis/Procedures Colonic polyps; alcohol use disorder
Diet Regular
Activity As tolerated
Driving Restrictions As prior to admission
Bathing Restrictions None
Instructions:
Stand-Alone Forms:
Changes to Home Medications: Yes
Discharge Medications:
DC Medications w/original date entered in [employer]
allopurinol 300 mg tablet 300 mg PO DAILY Gout 03/14/24
apixaban 5 mg tablet (Eliquis) 5 mg PO BID Blood Clot Prevention/Tx 03/14/24
atorvastatin 40 mg tablet 40 mg PO HS High Cholesterol 03/14/24
fenofibrate nanocrystallized 145 mg tablet 145 mg PO DAILY HIGH TRIGLYCERIDES 03/14/24
gabapentin 300 mg capsule 900 mg PO HS Pain 03/14/24
hydrochlorothiazide 25 mg tablet 25 mg PO DAILY Fluid Retention/Swelling 03/14/24
lisinopril 40 mg tablet 40 mg PO DAILY Blood Pressure 03/14/24
metoprolol succinate 50 mg tablet,extended release 24 hr 50 mg PO DAILY Blood Pressure 03/14/24
trazodone 50 mg tablet 50 mg PO HS Mental Health/Anxiety 03/14/24
folic acid 1 mg tablet 1 mg PO DAILY #30 tabs 03/17/24
thiamine HCl (vitamin B1) 100 mg tablet 100 mg PO DAILY #30 tabs 03/17/24
Home Medication Changes
New med - thiamine,folic acid
Pending Results: No
== END 2024-03-17 14:59 | disposition home or self-care (01) | DRG 897 ==
LOC: 4 WEST ACU 18:09
PROVIDERS: ADMITTING PHYSICIAN Internal Medicine; CONSULT PHYSICIAN Internal Medicine; EMERGENCY PHYSICIAN Emergency Medicine; FAMILY PHYSICIAN Family Medicine
PROC: 0DBH8ZX Excision of Cecum, Via Natural or Artificial Opening Endoscopic, Diagnostic (ICD-10-PCS; 2024-03-17)
PROC: 0DBM8ZX Excision of Descending Colon, Via Natural or Artificial Opening Endoscopic, Diagnostic (ICD-10-PCS; 2024-03-17)
PROC: 0DBN8ZX Excision of Sigmoid Colon, Via Natural or Artificial Opening Endoscopic, Diagnostic (ICD-10-PCS; 2024-03-17)
PROC: 0DBL8ZX Excision of Transverse Colon, Via Natural or Artificial Opening Endoscopic, Diagnostic (ICD-10-PCS; 2024-03-17)
DX: F10.239 Alcohol dependence with withdrawal, unspecified (principal); I48.21 Permanent atrial fibrillation; I10 Essential (primary) hypertension; Z79.01 Long term (current) use of anticoagulants; D12.0 Benign neoplasm of cecum; D12.3 Benign neoplasm of transverse colon; D12.4 Benign neoplasm of descending colon; D12.5 Benign neoplasm of sigmoid colon; I69.320 Aphasia following cerebral infarction
CPT/HCPCS: 88305; 80048; 80053; 80306; 82077; 83735; 84100; 85025; 85027; 85730; 93005; 97161; 99285

== ENCOUNTER 2024-03-18 01:53 | Emergency (ER) | payer MEDICARE, SELFPAY ==
[2024-03-18] VITALS (11 sets, daily range): BP systolic 100–128; BP diastolic 61–97; BMI 27.4
[2024-03-18 03:10] LABS: % Basophils 0.3 % (0-2); % Eosinophils 0.6 % (0-6); % Immature Granulocytes 0.7 % (0-0.5); % Lymphocytes 20.9 % (20.5-51.1); % Monocytes 8.9 % (1.7-9.3); % Neutrophils 68.6 % (42.2-75.2); Absolute Eosinophils 0.1 10^3/uL (0-0.7); Absolute Immature Granulocytes 0.1 10^3/uL (0-0.05); Absolute Lymphocytes 2.5 10^3/uL (1.2-3.4); Absolute Monocytes 1.1 10^3/uL (0.1-0.6); Absolute Neutrophils 8.3 10^3/uL (1.4-6.5); Hematocrit 40.8 % (39.0-52.0); Hemoglobin 15.1 g/dL (13.0-18.0); Mean Corpuscular Hgb 33.8 pg (27.0-31.0); Mean Corpuscular Volume 91.3 fL (80.0-94.0); Mean Platelet Volume 9.2 fL (7.4-10.4); Nucleated Red Blood Cells % 0 % (-); Platelet Count 284 10^3/uL (130-400); Red Blood Cell Count 4.47 10^6/uL (4.70-6.10); Red Cell Dist. Width 13.2 % (11.5-14.5); White Blood Cell Count 12.1 10^3/uL (4.8-10.8)
[2024-03-18 03:17] LABS: Urine Albumin Negative (Neg - Trace); Urine Bilirubin Negative (Negative); Urine Character Clear (Clear); Urine Color Yellow; Urine Glucose Negative (Negative); Urine Ketone Negative (Negative); Urine Leukocyte Negative (Negative); Urine Nitrite Negative (Negative); Urine Occult Blood Negative (Negative); Urine Specific Gravity 1.005 (<1.030); Urine Urobilinogen Negative (Neg - 1+)
[2024-03-18 03:26] LABS: Amphetamines Negative (Negative); Barbiturates Positive (Negative); Benzodiazepines Negative (Negative); Buprenorphine Negative (Negative); Cocaine Negative (Negative); Marijuana Negative (Negative); Methadone Negative (Negative); Methamphetamines Negative (Negative); Opiates Negative (Negative); Phencyclidine Negative (Negative); Tricyclic Antidepressants Negative (Negative)
--- NOTE | 2024-03-18 03:37 | ED.GENMED ---
History of Present Illness
General
Chief Complaint: Overdose Intentional
Source: patient and ambulance crew
Time Seen by Provider: 03/18/24 01:56
Nursing documentation reviewed up to this point in time: agreed with
Travel History
Have you had any contact with someone who has COVID-19?: No
Do you have any symptoms of coronavirus? Fever > 100 degrees, chills, cough, shortness of breath, sore throat, loss of taste or smell, muscle aches, or headache?: No
History of Present Illness
History of Present Illness:
59-year-old male that presents with possible overdose of gabapentin. Patient admits to drinking 15 beers this evening. He states that he was not trying to hurt himself and that is part of his normal routine. Patient was recently discharged from
this hospital after colonoscopy. Patient has a history of embolic stroke, CVA, alcohol abuse. Patient denies any symptoms at this time. Patient is staying at his sister's house that she became concerned tonight because he drank 15 beers and
possibly took extra gabapentin.
Past History
Past History
ED Past Medical History: Arrthythmia, COPD, CVA, HTN, Hypercholesterolemia and Other
ED Past Surgical History: Cardiac
Social History
Tobacco: Former smoker
Alcohol: None
Drug: None
Living: with family
Review of Systems
Review of Systems
Allergies reviewed?: Yes
All Other Systems: Not applicable
Constitutional: Reports no symptoms
EENT: Reports no symptoms
Respiratory: Reports no symptoms
Cardiac: Reports no symptoms
ABD/GI: Reports no symptoms
: Reports no symptoms
Musculoskeletal: Reports no symptoms
Skin: Reports no symptoms
Neurological: Reports no symptoms
Endocrine: Reports no symptoms
Hematologic/Lymphatic: Reports no symptoms
Psychiatric: Reports no symptoms
Phy Exam
General Physical Exam
General Presentation: well appearing and no apparent distress
General Skin: warm and dry
General Habitus: normal
General Mental: alert
General Hydration: appears well hydrated
ENT Exam
ENT Exam: EOMI, pharynx normal, neck supple and normocephalic
Eye Exam
Eye Exam: PERRL, cornea clear and conjunctiva normal
Cardiovascular Exam
Cardiovascular Exam: regular rate/rhythm, no edema, no murmur and normal peripheral pulses
Pulmonary Exam
Pulmonary Exam: lungs clear, no respiratory distress, no rales, no crackles, no rhonchi, no stridor, no wheezing and no cough
Gastrointestinal Exam
Gastrointestinal Exam: normal bowel sounds, non tender, soft, no organomegaly, no pulsatile mass and non distended
Neurological Exam
Neurological Exam: alert, oriented x3, no motor deficits and speech normal
Mental
Mental Status: appears mod intoxicated, oriented to person and confused
Describe Speech: expressive aphasia
Musculoskeletal Exam
Musculoskeletal Exam: full ROM and no edema
Skin Exam
Skin Exam: normal color, warm/dry, no rash and no petechia
Psychiatric Exam
Psychiatric Exam: normal mood/affect
Course
Orders/Labs/Results
Orders:
Orders
03/18/24 02:29
Acetaminophen Urgent
Alcohol Urgent
Complete Blood Count/With Diff Urgent
Comprehensive Metabolic Panel Urgent
Salicylate Urgent
Urinalysis Reflex To Culture Urgent
Date Specimen was Collected: 03/18/24
Time Specimen was Collected: 02:27
Urine Drug Abuse Screen Urgent
Date Specimen was Collected: 03/18/24
Time Specimen was Collected: 02:27
03/18/24 02:34
EKG [Electrocardiogram (*1)] Urgent
Reason for Study: Abnormal EKG
EKG- Treatment ONCE
03/18/24 04:04
Case Management Consult ONCE
Case Management Consult: Discharge Planning
Comment: Right to just keep it on hold and nodulus patient lives alone with care from his sister. He is a
chronic alcohol user. He is unable to care for himself. He became verbally threatening towards his
sister this evening and over the last few weeks. She states that he is no longer welcome in her
home. She is afraid for her safety. She requests placement for him.
Abnormal Lab Results
03/18/24
02:29
WBC 12.1 H 10^3/uL
(4.8-10.8)
RBC 4.47 L 10^6/uL
(4.70-6.10)
MCH 33.8 H pg
(27.0-31.0)
Abs Immat Gran (auto) 0.1 H 10^3/uL
(0-0.05)
Absolute Neuts (auto) 8.3 H 10^3/uL
(1.4-6.5)
Absolute Monos (auto) 1.1 H 10^3/uL
(0.1-0.6)
Immature Gran % 0.7 H %
(0-0.5)
Alkaline Phosphatase 35 L U/L
(38-126)
Salicylates < 1.0 L mg/dl
(2.0-20.0)
Acetaminophen < 10 L ug/ml
(10-30)
Ur Barbiturates Screen Positive H
(Negative)
03/18/24 02:29
03/18/24 02:29
Vital Signs
Initial and Last Documented VS:
Initial Vital Signs
Pulse Pulse Ox
94 99
03/18/24 01:56 03/18/24 01:56
Last Documented Vital Signs
Temp Pulse Resp BP Pulse Ox
98.4 F 98 20 121/91 98
03/18/24 10:19 03/18/24 09:47 03/18/24 09:47 03/18/24 09:47 03/18/24 09:47
*Critical Care Note
Total Time (30-74mins, 75-104mins- exclusive of procedures): Not Applicable
Update Note
Update Note:
03/18/2024 0401 AM: Spoke with Sister China who has been his primary caregiver since 2010. She states that though she lives here in [place], he lives up in the [facility]. She commutes back and forth several times per week to care for him. She
brings him back to [place] for all of his medical care. Patient had an embolic stroke in 2013 and she has been his primary caregiver since. She states that with his expressive aphasia and weakness he is unable to care for himself. She handles
all of his financial issues. She states that lately he has been verbally and physically aggressive and threatening towards her. She reports that he is not welcome in her home any longer. She wants him to get help but he is currently unwilling.
Will put in a case management consult.
No signs of alcohol withdrawal at this time
ED Attending Note
-
Portions of this chart may have been created with voice recognition software.� Occasional wrong word or��sound alike� substitutions may have occurred due to the inherent limitations of voice recognition software.
Discharge Plan
Departure
Patient Disposition: Home (Routine Discharge)
Date of Disposition: 03/18/24
Time of Disposition: 04:06
Patient with high blood pressure during this ER visit?: Yes
Discharge Problem:
Alcohol dependence
Instructions: Alcohol Use Disorder (DC), BLOOD PRESSURE
Prescriptions:
No Action
atorvastatin 40 mg tablet
40 mg PO HS
trazodone 50 mg tablet
50 mg PO HS
metoprolol succinate 50 mg tablet extended release 24 hr
50 mg PO DAILY
gabapentin 300 mg capsule
900 mg PO HS
allopurinol 300 mg tablet
300 mg PO DAILY
hydrochlorothiazide 25 mg tablet
25 mg PO DAILY
lisinopril 40 mg tablet
40 mg PO DAILY
fenofibrate nanocrystallized 145 mg tablet
145 mg PO DAILY
Eliquis 5 mg tablet
5 mg PO BID
folic acid 1 mg Tablet
1 mg PO DAILY Qty: 30 0RF
Rx Instructions:
for a month
thiamine HCl (vitamin B1) 100 mg Tablet
100 mg PO DAILY Qty: 30 0RF
Rx Instructions:
for a month
Referrals:
PRIVATE,PHYSICIAN [Family Provider] -
Activity Restrictions/Additional Instructions:
Follow-up with your doctors in the [place]. Return here if worse.
Interventions
Interventions:
*Risk Screen - Suicide Last Done: 03/18/24 01:58
*General Assessment Last Done: 03/18/24 01:58
*Neglect/Abuse Screening Last Done: 03/18/24 01:58
ED- Fall Risk Assessment Last Done: 03/18/24 10:19
*ED COVID-19 Vaccine History Last Done: 03/18/24 01:58
*Nursing Disposition Last Done: 03/18/24 10:19
ED- Cardiac Assessment Last Done: 03/18/24 02:35
ED- Neurological Assessment Last Done: 03/18/24 02:35
ED-Psychological Assessment Last Done: 03/18/24 02:35
ED- Pulmonary Assessment Last Done: 03/18/24 02:35
Discharge Date and Time
Discharge Date/Time: 03/18/24 10:19
Print Language: COMORAN
[2024-03-18 03:39] LABS: ALT (SGPT) 38 U/L (0-50); AST (SGOT) 51 U/L (17-59); Acetaminophen < 10 ug/ml (10-30); Albumin 3.7 g/dl (3.5-5.0); Alcohol 111 mg/dl; Alkaline Phosphatase 35 U/L (38-126); Blood Urea Nitrogen 13 mg/dl (9-20); Calcium 9.1 mg/dl (8.4-10.2); Carbon Dioxide 26 mmol/L (22-30); Chloride 102 mmol/L (98-107); Estimated Creatinine Clearance 109 ml/min; Glucose 88 mg/dl (70-99); Potassium 3.9 mmol/L (3.5-5.1); Salicylate < 1.0 mg/dl (2.0-20.0); Sodium 138 mmol/L (135-145); Total Bilirubin 0.7 mg/dl (0.2-1.3); Total Protein 6.4 g/dl (6.3-8.2); eGFR > 60.00
--- NOTE | 2024-03-18 09:52 | CM ---
Addendum entered by Apoorva So RN 03/18/24 10:24:
CM spoke with patient's RN who endorsed that patient has been secure for ride via [employer] service. Patient is agreeable to plan.
Original Note:
CM received consult for patient regarding 'placement.' CM reviewed medical records. Patient presented to crisis after sister reports that patient drank 15 beers and took an unknown quantity of his medications. Patient was threatening the sister and
stated that he was going to kill her. 302 was denied.
CM spoke with patient who stated that he wanted no further contact with his sister. He stated he wants to return home to the [facility] [facility] [place] [address]
Patient stated that he plans to retrieve his belongings from his sister and then get a cab ride home. CM spoke with patient's sister who stated that patient has been increasingly violent in the last few weeks. SHe also reports that he has increased
his alcohol consumption in the last few weeks. She does not feel safe having the patient return home. Sister reports multiple phone calls to the home due to patient's behavior. Patient's sister is patient's dog daycare provider. Patient's PCP is Dr. Mendez
Pierce. Sister reports that patient cannot manage is medications at home and he has fallen multiple times. She does not believe that he can live on his own. She is agreeable to bringing patient's belongings to the emergency room, but believes
if she visits with patient, patient will become aggressive.
Patient is agreeable to plan and will call a tax once his belongings arrive.
CM placed call to [facility] on aging with concerns of self neglect. JENN spoke with Vivian to give protective services report.
PLAN: Patient to return to his home in the [facility].
== END 2024-03-18 10:19 | disposition home or self-care (01) ==
LOC: EMR 01:53
PROVIDERS: EMERGENCY PHYSICIAN Student in an Organized Health Care Education/Training Program
DX: F10.20 Alcohol dependence, uncomplicated (principal); I10 Essential (primary) hypertension; Z87.891 Personal history of nicotine dependence
CPT/HCPCS: 99284; 80053; 80143; 80179; 80306; 81003; 82077; 85025; 93005

== ENCOUNTER → 2024-11-17 13:05 | Outpatient (REF) | payer MEDICARE, SELFPAY | LOC: RAD 13:05 | PROVIDERS: ATTENDING PHYSICIAN Family Medicine | DX: Z87.891 Personal history of nicotine dependence (principal) | CPT/HCPCS: 71271 ==

== ENCOUNTER → 2025-04-17 14:12 | Outpatient (REF) | payer MEDICARE, SELFPAY | LOC: HWRAD 14:12 | PROVIDERS: ATTENDING PHYSICIAN Family Medicine | DX: I25.10 Atherosclerotic heart disease of native coronary artery without angina pectoris (principal) | CPT/HCPCS: 75571 ==

== ENCOUNTER 2025-06-03 08:46 | Emergency (ER) | payer MEDICARE, SELFPAY ==
[2025-06-03] VITALS (7 sets, daily range): BP systolic 148–168; BP diastolic 93–118
--- NOTE | 2025-06-03 09:49 | ED.GENMED ---
History of Present Illness
General
Chief Complaint: Heart Rate Problem
Source: patient and family
Exam Limitations: other (Aphasia)
Time Seen by Provider: 06/03/25 09:23
Nursing documentation reviewed up to this point in time: agreed with
History of Present Illness
History of Present Illness:
60-year-old male A-fib prior stroke with aphasia right arm contracture [facility] by his sister locally complain of some palpitations the last few days of the did not have air conditioning, patient appeared
confused on the phone sister went to pick him up he looked better although his blood pressure was elevated today she brought up in for evaluation here he appears to be at his baseline cooperative aphasic the right arm contracture blood pressure was
up in triage appears to come down without treatment has been compliant with his meds
Past History
Past History
ED Past Medical History: Arrthythmia, COPD, CVA, HTN, Hypercholesterolemia and Other
ED Past Surgical History: Cardiac
Social History
Tobacco: Former smoker
Alcohol: None
Drug: None
Personal: Single
Living: with family
Employment: Retired
Review of Systems
Review of Systems
All Other Systems: Not applicable
Cardiac: Reports palpitations
Neurological: Denies headache
Hematologic/Lymphatic: Reports no symptoms
Psychiatric: Reports no symptoms
Phy Exam
Physical Exam
Physical Exam:
Physical Exam
General: Chronically ill male nontoxic quad
Neck: No jaundice
Heart: Irregular
Lungs: no acute respiratory distress. clear bilaterally
Abdomen: Not tender
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
Skin: no rash
Psychiatric: well kept. interactive and cooperative
Extremities: no edema.
Course
Orders/Labs/Results
Orders:
Orders
06/03/25 08:51
Electrocardiogram (*1) Urgent
Reason for Study: Palpitations
06/03/25 08:52
EKG- Treatment ONCE
06/03/25 09:40
CT Head W/o Iv Contrast Urgent
Comment:
Reason For Exam: prior cva confusion
Metoprolol [Lopressor] 5 mg IV NOW STA
06/03/25 10:09
Complete Blood Count/With Diff Urgent
TSH Urgent
Troponin I Urgent
06/03/25 10:10
Comprehensive Metabolic Panel Urgent
Magnesium Urgent
Abnormal Lab Results
06/03/25 06/03/25
10:09 10:10
RBC 4.60 L 10^6/uL
(4.70-6.10)
MCH 33.5 H pg
(27.0-31.0)
Monocytes % 9.7 H %
(1.7-9.3)
Carbon Dioxide 31 H mmol/L
(22-30)
Creatinine 0.6 L mg/dL
(0.7-1.3)
Alkaline Phosphatase 30 L U/L
(38-126)
06/03/25 10:09
06/03/25 10:10
Vital Signs
Initial and Last Documented VS:
Initial Vital Signs
Temp Pulse Resp BP Pulse Ox
97.5 F 95 18 168/118 100
06/03/25 08:47 06/03/25 08:47 06/03/25 08:47 06/03/25 08:47 06/03/25 08:47
Last Documented Vital Signs
Temp Pulse Resp BP Pulse Ox
97.5 F 80 15 148/96 95
06/03/25 08:47 06/03/25 11:30 06/03/25 11:30 06/03/25 11:00 06/03/25 11:30
MDM/Problems Addressed
Differential Diagnosis Includes:
Hypertensive cephalopathy hypertensive urgency electrolyte abnormality heat exhaustion intracerebral hemorrhage primary arrhythmia
MDM/Problems Addressed:
Palpitations confusion which was
Chronic conditions affecting care: HTN, Arrhythmia and Neurological disorder
Acute Exacerbation and/or Progression of Chronic Illness: Arrhythmia and Neurological disorder
*Radiology
Radiology exam reviewed: radiology read reviewed
*Pulse Oximetry
SaO2: 100
Oxygen Mode of Delivery: Room air
Patient hypoxic: no
*EKG
Interpreted by ED Provider?: Yes
Interpretation: abnormal
Comparison EKG: no changes
Heart Rate: 70
Rate: normal
Rhythm: a-fib
Ischemia: no ischemia
*[employer] Interpretation
Rate: normal
Interpretation: normal
Heart Rate: 70
Rhythm: a-fib
*Critical Care Note
Total Time (30-74mins, 75-104mins- exclusive of procedures): Not Applicable
Update Note
Update Note:
Update looks to be at his baseline, blood pressure is up initially but appears to be improving without treatment will check CTA head electrolytes cardiac markers adjust blood pressure meds as indicated
10:[address] report noted patient appears well did receive 5 iv Lopressor labs are pending
12 noon patient feeling better vital signs normalizing will increase Lopressor to 75 daily
ED Attending Note
-
Portions of this chart may have been created with voice recognition software.� Occasional wrong word or��sound alike� substitutions may have occurred due to the inherent limitations of voice recognition software.
Discharge Plan
Departure
Patient Disposition: Home (Routine Discharge)
Date of Disposition: 06/03/25
Time of Disposition: 11:59
Patient with high blood pressure during this ER visit?: Yes
Condition: Good
Discharge Problem:
Permanent atrial fibrillation
Instructions: Atrial Fibrillation (DC), Palpitations (DC), BLOOD PRESSURE
Prescriptions:
New
metoprolol succinate 25 mg tablet extended release 24 hr
25 mg PO DAILY Qty: 90 0RF
Rx Instructions:
75 mg/day
No Action
atorvastatin 40 mg tablet
40 mg PO HS
trazodone 50 mg tablet
50 mg PO HS
metoprolol succinate 50 mg tablet extended release 24 hr
50 mg PO DAILY
gabapentin 300 mg capsule
900 mg PO HS
allopurinol 300 mg tablet
300 mg PO DAILY
hydrochlorothiazide 25 mg tablet
25 mg PO DAILY
lisinopril 40 mg tablet
40 mg PO DAILY
fenofibrate nanocrystallized 145 mg tablet
145 mg PO DAILY
Eliquis 5 mg tablet
5 mg PO BID
folic acid 1 mg Tablet
1 mg PO DAILY Qty: 30 0RF
Rx Instructions:
for a month
thiamine HCl (vitamin B1) 100 mg Tablet
100 mg PO DAILY Qty: 30 0RF
Rx Instructions:
for a month
Referrals:
UNKNOWN,NO INTERVIEW [Unknown Provider]
Activity Restrictions/Additional Instructions:
Increase your metoprolol to 75 mg a day
Follow-up with your primary care provider and behavioral health assistant
Return to the ER if any concerns
Interventions
Interventions:
*Risk Screen - Suicide Last Done: 06/03/25 08:52
*General Assessment Last Done: 06/03/25 08:47
*Neglect/Abuse Screening Last Done: 06/03/25 08:47
Discharge Date and Time
Print Language: AUSTRALIAN
[2025-06-03] MEDS: LOPRESSOR 5 MG IV (10:12)
[2025-06-03 10:18] LABS: Hematocrit 42.5 % (39.0-52.0); Hemoglobin 15.4 g/dL (13.0-18.0); Mean Corp Hgb Conc. 36.2 g/dL (33.0-37.0); Mean Corpuscular Volume 92.4 fL (80.0-94.0); Nucleated Red Blood Cells % 0 % (-); Platelet Count 277 10^3/uL (130-400); Red Cell Dist. Width 12.7 % (11.5-14.5)
[2025-06-03 10:51] LABS: ALT (SGPT) 36 U/L (0-50); AST (SGOT) 59 U/L (17-59); Albumin 4.2 g/dl (3.5-5.0); Alkaline Phosphatase 30 U/L (38-126); Blood Urea Nitrogen 19 mg/dl (9-20); Calcium 9.6 mg/dl (8.4-10.2); Carbon Dioxide 31 mmol/L (22-30); Chloride 103 mmol/L (98-107); Glucose 94 mg/dl (70-99); Magnesium 1.6 mg/dl (1.6-2.3); Potassium 4.0 mmol/L (3.5-5.1); Sodium 138 mmol/L (135-145); Total Protein 7.3 g/dl (6.3-8.2); eGFR > 60.00
[2025-06-03 11:00] LABS: Troponin I < 0.012 ng/ml
[2025-06-03 11:21] LABS: TSH 1.90 uIU/ml (0.47-4.68)
== END 2025-06-03 12:36 | disposition home or self-care (01) ==
LOC: EMR 08:46
PROVIDERS: EMERGENCY PHYSICIAN Emergency Medicine; FAMILY PHYSICIAN Family Medicine
DX: I48.21 Permanent atrial fibrillation (principal); J44.9 Chronic obstructive pulmonary disease, unspecified; I10 Essential (primary) hypertension; E78.00 Pure hypercholesterolemia, unspecified; I69.320 Aphasia following cerebral infarction; Z79.899 Other long term (current) drug therapy; Z87.891 Personal history of nicotine dependence
CPT/HCPCS: 99284; 96374; 70450; 80053; 83735; 84443; 84484; 85025; 93005